=== PATIENT | female | born 1990 | race Caucasian/White ===

== ENCOUNTER 2017-11-30 06:14 | Observation (INO) | payer OTHER ==
[~2017-11-30] VITALS: Ht 165.1 cm; Wt 82.6 kg
[2017-11-30] MEDS ORDERED: NAPR-54 PO (07:09)
[2017-11-30] MEDS ORDERED: ELA25 PO (07:09)
[2017-11-30] MEDS ORDERED: CYCL5TAB PO (07:09)
[2017-11-30] MEDS ORDERED: BUPIVACAINE-MPF 0.5% 30 ML VIAL INJ ONE (07:18)
[2017-11-30] MEDS ORDERED: fentaNYL 0.05 MG/ML VIAL ONE ×2 (07:35→09:03)
[2017-11-30] MEDS ORDERED: MIDAZOLAM 2 MG/2 ML VIAL ONE ×2 (07:35→09:02)
[2017-11-30] MEDS ORDERED: ONDANSETRON 4 MG/2 ML VIAL ONE ×2 (10:35→11:39)
[2017-11-30] MEDS ORDERED: ROCURONIUM 50 MG/5 ML VIAL IV ONE (10:35)
[2017-11-30] MEDS ORDERED: DESFLURANE 240 ML BTL INH ONE (10:35)
[2017-11-30] MEDS ORDERED: KETOROLAC 30 MG/ML VIAL ONE (10:35)
[2017-11-30] MEDS ORDERED: PROPOFOL 200 MG/20 ML VIAL IV ONE (10:35)
[2017-11-30] MEDS ORDERED: LIDOCAINE 2% 100 MG/5 ML SYR IVP ONE (10:35)
[2017-11-30] MEDS ORDERED: SUCCINYLCHOLINE CHLORIDE 200 MG/10 ML VIAL IVP ONE (10:35)
[2017-11-30] MEDS ORDERED: DEXAMETHASONE 4 MG/ML VIAL ONE (10:35)
[2017-11-30] MEDS ORDERED: ONDANSETRON 4 MG/2 ML VIAL IVP PRN ×2 (10:50→11:05)
[2017-11-30] MEDS ORDERED: ceFAZolin 1,000 MG VIAL ONE (11:01)
[2017-11-30] MEDS ORDERED: HYDROmorphone PFS 2 MG/ML SYR IVP PRN (11:05)
[2017-11-30] MEDS: HYDROmorphone PFS 2 MG/ML SYR ONE ×4 (11:40→12:10)
[2017-11-30] MEDS: ACETAMINOPHEN/CODEINE 300/30MG 1 TAB PO PRN (13:00)
[2017-11-30] MEDS: IBUPROFEN 800 MG TAB PO PRN ×2 (14:40→18:49)
--- NOTE | 2017-11-30 16:05 | NUR ---
PT ARRIVED TO [facility], [place]. BEDSIDE REPORT GIVEN BY OR NURSE. PT IN STABLE CONDITION.
--- NOTE | 2017-11-30 16:35 | NUR ---
STRAIGHT CATH DUE TO PT NOT BEING ABLE TO VOID. 200ML URINE NOTED. PT BLADDER DISTENDED. DID BLADDER SCAN POST CATHETERIZATION. 105ML URINE NOTED.
--- NOTE | 2017-11-30 17:32 | NUR ---
PT STATED SHE WAS FEELING NAUSEOUS. ADMINISTERED ZOFRAN. PT TOLERATED MEDS WELL. VISITOR AT BEDSIDE. PT STILL REPORTED UNABLE TO VOID. ENCOURAGED PT TO AMBULATE DOWN THE [place] WHEN SHE CAN TOLERATE ACTIVITY.
--- NOTE | 2017-11-30 18:49 | NUR ---
PT COMPLAINED OF PAIN ON RIGHT SIDE OF ABD. ADMINISTERED MOTRIN FOR PAIN. PT TOLERATED WELL. STATED NO MORE NAUSEA BUT STILL UNABLE TO VOID. ENCOURAGED PT TO AMBULATE. PT STATED SHE WILL TRY ONCE PAIN IS RELIEVED.
--- NOTE | 2017-11-30 19:05 | NUR ---
ENDORSED PT TO PAINT DIPPER NURSE KARIS AT BEDSIDE FOR CONTINUITY OF CARE. PT IN STABLE CONDITION.
--- NOTE | 2017-11-30 19:06 | NUR ---
RECEIVED BEDSIDE REPORT FROM DAY SHIFT NURSE BRYAN RN, PT STABLE, NO DISTRESS NOTED, IV TO R AC 20 INTACT, PATENT, PT ON ROOM AIR NO SOB, DRESSING INTACT, INITIAL ASSESSMENT DONE, ALL SAFETY PRECAUTION MET, WILL CONTINUE TO MONITOR.
--- NOTE | 2017-11-30 21:00 | NUR ---
PT WAS NOT ABLE TO VOID, BLADDER SCAN 271ML OF URINE, PT STATED THAT HER BLADDER IS FULL AND IT IS PAINFUL, CHARGE NURSE BLAZE RN CALLED DR. BUTTERFIELD REGARDING PT, STATED TO INSERT ESTES CATH, AND TO ADMIT PT TO MS OBSERVATION PT. WILL PUT IN ORDER AND CONTINUE WITH ORDERS.
[2017-11-30] MEDS: MORPHINE SULFATE 4 MG/ML SYR IM/IVP PRN (21:06)
--- NOTE | 2017-11-30 21:15 | NUR ---
ESTES CATH INSERTED, PT TOLERATED WELL, 150ML YELLOW URINE DRAINED, PT STABLE, NO DISTRESS NOTED, CALL LIGHT WITHIN REACH,WILL CONTINUE TO MONITOR.
[2017-12-01] VITALS: BP 103/64
--- NOTE | 2017-12-01 00:10 | NUR ---
CHECKED ON PT, PT SLEEPING, NO DISTRESS NOTED, CALL LIGHT WITHIN REACH, WILL CONTINUE TO MONITOR.
--- NOTE | 2017-12-01 01:10 | NUR ---
MOVED PT TO ROOM 110B, PT STABLE, NO DISTRESS NOTED, CALL LIGHT WITHIN REACH, WILL CONTINUE TO MONITOR.
--- NOTE | 2017-12-01 03:40 | NUR ---
CHECKED ON PT, PT SLEEPING, NO DISTRESS NOTED, CALL LIGHT WITHIN REACH, WILL CONTINUE TO MONITOR.
--- NOTE | 2017-12-01 06:25 | NUR ---
CHECKED ON PT, PT SLEEPING, NO DISTRESS NOTED, CALL LIGHT WITHIN REACH, WILL CONTINUE TO MONITOR.
--- NOTE | 2017-12-01 07:30 | NUR ---
ENDORSED PLAN OF CARE TO DAY SHIFT NURSE ADDI RN, PT STABLE, NO DISTRESS NOTED, CALL LIGHT WITHIN REACH.
--- NOTE | 2017-12-01 07:31 | NUR ---
RECEIVED REPORT FROM REPAIRER [employer]OCKS RN, PT IS A/OX4, ON ROOM AIR. PT HAS ESTES CATHETER IN PLACE AND AMBULATES WITH STEADY GAIT. PT HAS 20G IV TO RIGHT AC. PT HAS 3 ABDOMINAL INCISIONS CLEAN AND DRY DEPUTY CHIEF MAGISTRATE. UPDATED BOARD. DISCUSSED PLAN OF CARE WITH PT, PT VERBALIZED UNDERSTANDING. VITAL SIGNS WITHIN NORMAL LIMITS. PT IN STABLE CONDITION, NO SIGNS OF DISTRESS NOTED. BED IN LOWEST POSITION, CALL LIGHT WITHIN REACH. WILL CONTINUE TO MONITOR.
[2017-12-01] MEDS: MORPHINE SULFATE 4 MG/ML SYR IM/IVP PRN ×2 (07:37→11:04)
[2017-12-01 08:00] VITALS: BP 123/69
--- NOTE | 2017-12-01 08:40 | NUR ---
SPOKE TO DR BUTTERFIELD REGARDING PT C/O CONSTIPATION AND REQUEST FOR STOOL SOFTENER. DR BUTTERFIELD SAID OK TO ORDER COLACE, AND D/C ESTES CATHETER TO SEE IF PT CAN VOID NOW.
[2017-12-01] MEDS ORDERED: DOCUSATE 100 MG/10 ML UDC GT SCH (08:54)
--- NOTE | 2017-12-01 09:13 | NUR ---
ADMINISTERED SCHEDULED MED AND REMOVED F9OLEY CATHETER, PT TOLERATED WELL.
--- NOTE | 2017-12-01 10:35 | NUR ---
PATIENT HAS BEEN SCREENED AND CATEGORIZED LOW NUTRITION RISK. PATIENT WILL BE SEEN WITHIN 7 DAYS OF ADMISSION. 12/07/[address]
--- NOTE | 2017-12-01 11:05 | NUR ---
PT C/O 03/21 ABDOMINAL PAIN, MEDICATED WITH MORPHINE PER ORDER, PT TOLERATED WELL.
--- NOTE | 2017-12-01 11:15 | NUR ---
ENDORSED PT TO RN [place] AT PT BEDSIDE FOR CONTINUITY OF CARE. PT IS IN STABLE CONDITION, ALSO ENDORSED PAIN REASSESSMENT.
--- NOTE | 2017-12-01 11:16 | NUR ---
RECEIVED REPORT FROM NURSE AT BEDSIDE FOR CONTINUITY OF CARE. PT IS A/OX4, ON ROOM AIR. PT AMBULATES WITH STEADY GAIT. PT HAS 20G IV TO RIGHT AC, INTACT, PATENT, AND ASYMPTOMATIC, AND SALINE LOCK. PT HAS 2 ABDOMINAL INCISIONS, CLEAN AND DRY YUNIOR. UPDATED BOARD. DISCUSSED PLAN OF CARE WITH PT, PT VERBALIZED UNDERSTANDING. PT IN STABLE CONDITION, NO SIGNS OF DISTRESS NOTED. BED IN LOWEST POSITION, CALL LIGHT WITHIN REACH. WILL CONTINUE TO MONITOR PATIENT.
[2017-12-01] MEDS: ACETAMINOPHEN/CODEINE 300/30MG 1 TAB PO PRN (12:45)
--- NOTE | 2017-12-01 12:45 | NUR ---
PATIENT VOIDED FREELY, URINE WAS CLEAR, STRAW COLOR. URINE CONTAINED TWO SMALL BLOOD CLOTS. PATIENT C/O ABD PAIN 02/19, TYLENOL/CODEINE PRN ADMINISTERED. PATIENT TOLERATED IT WELL. CURRENTLY SITTING UP IN BED EATING CLEAR LIQUID LUNCH. FAMILY AT BEDSIDE. SAFETY PRECAUTION IN PLACE, CALL LIGHT WITHIN REACH. WILL CONTINUE TO MONITOR PATIENT.
--- NOTE | 2017-12-01 13:11 | NUR ---
CALLED DR. BUTTERFIELD ABOUT PATIENT'S STATUS. DR. BUTTERFIELD'S VOICEMAIL FULL, COULD NOT LEAVE A MESSAGE. WILL CALL HIM AGAIN.
--- NOTE | 2017-12-01 15:02 | NUR ---
CHARGE NURSE, ADDI, CALLED AND SPOKE TO DR. BUTTERFIELD. RELAYED THE INFORMATION THAT PATIENT HAS GAS AND HAS VOIDED. DR. BUTTERFIELD ENTERED DISCHARGE ORDER, WILL INFORM PATIENT.
[2017-12-01] MEDS: IBUPROFEN 800 MG TAB PO PRN (15:15)
--- NOTE | 2017-12-01 15:15 | NUR ---
DR. BUTTERFIELD CHANGED PATIENT'S DIET ORDER TO REGULAR, CHICKEN SANDWICH AND SALAD WAS GIVEN TO PATIENT TO EAT. PATIENT TOLERATED THEM WELL. PATIENT C/O 3/10 PAIN ON ABDOMEN. MOTRIN PRN ADMINISTERED, PATIENT TOLERATED IT WELL. DISCHARGE INSTRUCTIONS AND EDUCATION GIVEN TO PATIENT. PATIENT VERBALIZED UNDERSTANDING. IV REMOVED, IV CATHETER INTACT, MINIMAL BLEEDING NOTED. ID BANDS CUT. PATIENT WILL NOW CHANGE INTO HER OWN CLOTHING AND CALL HER BROTHER, WHO WILL COME TO PICK HER UP.
--- NOTE | 2017-12-01 15:55 | NUR ---
PATIENT WHEELED OFF THE FLOOR ACCOMPANIED BY NURSE. PATIENT TOOK ALL HER BELONGINGS WITH HER. PATIENT IN STABLE CONDITION.
[2017-12-02] MEDS ORDERED: DOCUSATE 100 MG/10 ML UDC GT SCH (09:00)
== END 2017-12-01 15:55 | disposition home or self-care (01) ==
LOC: MDS 06:14 → MMU 06:15 → MTU 15:20 → MDS 21:00 → MTU 21:12
PROVIDERS: ADMIT Obstetrics & Gynecology; ATTEND Obstetrics & Gynecology
DX: N94.6 Dysmenorrhea, unspecified (principal); N83.202 Unspecified ovarian cyst, left side; N80.1 Endometriosis of ovary
CPT/HCPCS: 58662; 82374; 87081; 96374; 96375; 96376; C1758; G0378; J0330; J0690; J1100; J1170; J1885; J2001; J2250; J2270; J2405; J2704; J3010; J3490; J7120

== ENCOUNTER 2018-10-12 08:03 | Emergency (ER) | payer OTHER ==
[~2018-10-12] VITALS: Ht 165.1 cm; Wt 87.1 kg
[~2018-10-12 08:03] MED LIST: CYCL5TAB PO; ELA25 PO; NAPR-54 PO
[2018-10-12 08:12] VITALS: BP 114/76
[2018-10-12] MEDS ORDERED: KETOROLAC 60 MG/2 ML VIAL IM ONE (08:25)
--- NOTE | 2018-10-12 08:45 | NUR ---
bib self with c/o 9/10 constant "cramping" suprapubic pain x "weeks". Patient denies any n/v/d or fevers. AAOX4 WITH EVEN AND STEADY GAIT; LUNGS CLEAR BL; HR EVEN AND REGULAR; PT DENIES ANY FEVER, CP, SOB, OR COUGH AT THIS TIME; PATIENT STATES PAIN OF 9/10 AT THIS TIME; VSS; PATIENT POSITIONED FOR COMFORT; HOB ELEVATED; BEDRAILS UP X2; BED DOWN. ER MD MADE AWARE OF PT STATUS.
--- NOTE | 2018-10-12 08:50 | NUR ---
Patient being evaluated by physician at bedside.
--- NOTE | 2018-10-12 09:04 | NUR ---
Patient discharged with v/s stable. Written and verbal after care instructions given and explained. Patient alert, oriented and verbalized understanding of instructions. Ambulatory with steady gait. All questions addressed prior to discharge. ID band removed. Patient advised to follow up with PMD. Rx of motrin, norco and cipro given. Patient educated on indication of medication including possible reaction and side effects. Opportunity to ask questions provided and answered.
[2018-10-12 09:05] VITALS: BP 112/71
== END 2018-10-12 09:04 | disposition home or self-care (01) ==
LOC: MED 08:03
DX: N39.0 Urinary tract infection, site not specified (principal); N80.9 Endometriosis, unspecified; Z90.49 Acquired absence of other specified parts of digestive tract; Z91.040 Latex allergy status; Z79.899 Other long term (current) drug therapy
CPT/HCPCS: 81002; 81025; 96372; 99283; J1885

== ENCOUNTER 2021-04-02 13:35 | Emergency (ER) | payer OTHER ==
[~2021-04-02] VITALS: Ht 167.6 cm; Wt 67.6 kg
[~2021-04-02 13:35] MED LIST changes: +AMIT25TA40 PO; -ELA25 PO
[2021-04-02 13:38] VITALS: BP 123/67
--- NOTE | 2021-04-02 13:43 | NUR ---
Patient ambulated TO BED 6.
--- NOTE | 2021-04-02 13:59 | NUR ---
30 Y/O FEMALE C/O FEVER X1 DAY, BODY ACHES AND CHILLS SINCE TUESDAY. PATIENT STATES SHE IS 5 WEEKS . PT ALSO HAVING NAUSEA. DENIES COUGH/SOB. PT STATES 10/10 ACHING PAIN. LUNG SOUNDS CLEAR. RX: TYLENOL WITH NO RELIEF NO PMH ALLERGIES: LATEX
--- NOTE | 2021-04-02 14:41 | NUR ---
MEENU BARILLAS AT BEDSIDE EXAMINING PT
[2021-04-02] MEDS ORDERED: ONDANSETRON 4 MG/2 ML VIAL IVP ONE (14:50)
[2021-04-02] MEDS ORDERED: NACL 0.9% 1,000 ML IV ONE (14:50)
--- NOTE | 2021-04-02 15:22 | NUR ---
BLOOD LABS COLLECTED, ABRIL AND FLU SWABS COLLCTED AND SENT TO LAB
[2021-04-02] MEDS ORDERED: ACETAMINOPHEN EXTRA STRENGTH 500 MG TAB PO ONE (15:35)
[2021-04-02 15:38] LABS: BASOPHILS % (AUTO) 0.1 % (0.0-2.0); HEMATOCRIT 40.9 % (36-48); HEMOGLOBIN 13.6 g/dL (12.0-16.0); LYMPHOCYTES # (AUTO) 1.2 K/uL (2.5-16.5); LYMPHOCYTES % (AUTO) 9.4 % (20.5-51.1); MEAN CORPUSCULAR HEMOGLOBIN 29 pg (27-31); MEAN CORPUSCULAR HGB CONC 33 g/dL (33-37); MEAN CORPUSCULAR VOLUME 88.6 fL (80-94); MONOCYTES # (AUTO) 0.8 K/uL (0.8-1.0); NEUTROPHILS # (AUTO) 10.9 K/uL (1.8-7.7); NEUTROPHILS % (AUTO) 84.5 % (42.2-75.2); PLATELET COUNT (AUTO) 245 K/uL (140-450); RED BLOOD CELL COUNT(AUTO) 4.62 MIL/uL (4.20-5.40); WHITE BLOOD COUNT (AUTO) 12.9 K/uL (4.8-10.8)
[2021-04-02] MEDS ORDERED: NACL 0.9% 500 ML IV ONE (15:50)
[2021-04-02 15:59] LABS: ALBUMIN 4.2 g/dL (3.4-5.0); ANION GAP 13.9 (8-16); CARBON DIOXIDE 22.9 mmol/L (21-32); CREATININE 0.7 mg/dL (0.6-1.3); POTASSIUM 3.8 mmol/L (3.5-5.1); TOTAL BILIRUBIN 0.4 mg/dL (0.0-1.0)
[2021-04-02] MEDS ORDERED: METO-485 PO (16:17)
[2021-04-02] MEDS ORDERED: ACET-9882 PO (16:17)
[2021-04-02] MEDS ORDERED: NITR100C7 PO (16:17)
[2021-04-02] MEDS ORDERED: DOXY1TCP PO (16:17)
[2021-04-02 16:35] VITALS: BP 128/74
--- NOTE | 2021-04-02 16:35 | NUR ---
Patient discharged with v/s stable. Written and verbal after care instructions given and explained. Patient alert, oriented and verbalized understanding of instructions. Ambulatory with steady gait. All questions addressed prior to discharge. ID band removed. Patient advised to follow up with PMD. Rx of ACETAMINOPHEN,DICLEGIS,REGLAN,AND MACROBID given. Patient educated on indication of medication including possible reaction and side effects. Opportunity to ask questions provided and answered.
[2021-04-02 17:23] LABS: BILIRUBIN,URINE NEGATIVE (NEGATIVE); BLOOD, URINE TRACE-I (NEGATIVE); LEUKOCYTE ESTERASE ,URINE 3+ (NEGATIVE); NITRITE, URINE NEGATIVE (NEGATIVE); UGLUCOSE NEGATIVE (NEGATIVE)
[2021-04-02 17:24] LABS: APPEARANCE,URINE HAZY (CLEAR); COLOR,URINE STRAW (YELLOW)
[2021-04-02 17:42] LABS: RBC,URINE 0-5 /HPF (0-5); WBC,URINE 20-60 /HPF (0-5)
== END 2021-04-02 16:35 | disposition home or self-care (01) ==
LOC: MED 13:35
DX: N39.0 Urinary tract infection, site not specified (principal); B34.9 Viral infection, unspecified; Z91.040 Latex allergy status; Z20.822 Contact with and (suspected) exposure to COVID-19
CPT/HCPCS: 36415; 80053; 81001; 81025; 83690; 85025; 87086; 87426; 87804; 96361; 96374; 99283; J2405; J7030